=== PATIENT | female | born 1930 | race African-American/Black ===

== ENCOUNTER 2018-05-19 11:48 | Inpatient (IN) | payer MEDICARE ==
[~2018-05-19] VITALS: Ht 167.6 cm; Wt 79.8 kg
--- NOTE | ~2018-05-19 | MORECARE ---
CASE MANAGEMENT DISCHARGE SUMMARY PATIENT: JAZZ SMITH UNIT: [id number] ADM DATE: 05/19/18 AGE: 88 : 31 SEX: F ROOM/BED: D.2223 AUTHOR: BASILIA,DOC PHYSICIAN: REFERRING PHYSICIAN: DANNIE RAMIREZ MD DATE OF SERVICE: 05/22/18 Discharge Plan Patient Name: JAZZ SMITH Facility: [facility]:[place] : 1930 Planned Disposition: Home Anticipated Discharge Date: Discharge Date: Expected LOS: Initial Reviewer: [email or web address] Initial Review Date: 05/22/2018 Generated: 05/22/18 3:46 pm DCPIA - Discharge Planning Initial Assessment Updated by [email or web address]: Jo Iyer on 05/22/18 2:45 pm * Is the patient Alert and Oriented? Yes * How many steps to enter\exit or inside your home? 0/0 * PCP Dr. Coker in [place] * Pharmacy [facility] in [place] * Preadmission Environment Home with Family * ADLs Independent * Equipment Cane Oxygen Walker * List name and contact numbers for known caregivers / representatives who currently or will assist patient after discharge: Shanda Maldonado - [facility] - [phone] Cruz Biggs - [facility] - [phone] Eva White [facility] - [phone] * Verbal permission to speak to the caregivers and representatives has been obtained from the patient. Yes * Community resources currently utilized None * Please name any agencies selected above. [facility] in [place] is DME for Oxygen * Additional services required to return to the preadmission environment? No * Can the patient safely return to the preadmission environment? Yes * Has this patient been hospitalized within the prior 30 days at any hospital? No Coverage Notice Reviewer: [id number] - Jo Iyer Notice Issued Date-Time: 05/22/2018 14:30 Notice Type: IM Discharge Notice Notice Delivered To: Patient Relationship to Patient: Self Surveillance Officer Name: Delivery Method: HAND - Hand Delivered Faby Days: Prior Verbal Notification: Recipient Understood Notice: Yes Recipient Signature: Yes Med Rec Note Co-signed by Attending: Coverage Notice Comment: IMM explained, signed, copy given, original placed in MR Last DP export: 05/22/18 1:37 Patient Name: JAZZ SMITH Page [id number] at 1446 All edits/amendments must be made on the electronic document DICTATION DATE: 05/22/181444 CLINICAL SOCIAL WORK AIDE: YAMILA 05/22/181444 RPT#: [id number] DC DATE: STATUS: ADM IN [facility] [address] [place] [address] END OF REPORT
--- NOTE | ~2018-05-19 | MORECARE ---
CASE MANAGEMENT DISCHARGE SUMMARY PATIENT: JAZZ SMITH UNIT: [id number] ADM DATE: 05/19/18 AGE: 88 : 31 SEX: F ROOM/BED: D.2223 AUTHOR: BASILIADOC PHYSICIAN: REFERRING PHYSICIAN: DANNIE RAMIREZ MD DATE OF SERVICE: 05/23/18 Discharge Plan Patient Name: JAZZ SMITH Facility: [facility]:[place] : 1930 Planned Disposition: Home Anticipated Discharge Date: Discharge Date: 05/22/2018 Expected LOS: 0 Initial Reviewer: [email or web address] Initial Review Date: 05/22/2018 Generated: 05/23/18 8:58 am Comments DCP- Discharge Planning Updated by [email or web address]: Jo Iyer on 05/22/18 1:[address] Patient Name: JAZZ SMITH Admission Status: Urgent Accout number: [id number] Admission Date: 05-19-2018 : 1930 Admission Diagnosis:GASTROINTESTINAL HEMORRHAGE, UNSPECIFIED Attending: DANNIE RAMIREZ Current LOS: 3 Anticipated DC Date: Planned Disposition: Home Primary Insurance: MEDICARE A & B Discharge Planning Comments: CM met with patient and her daughters to discuss discharge planning. She is a transfer from [facility]. States prior to hospitalization, she was living with her son. States she is independent with all ADL's. States she does use a cane for ambulation. States she no longer drives, her family drives her where she needs to go. I discussed availability of rehab, SNF, home health and DME. States she has all the DME she needs and her plan is to return home with her son. States she does not need home health services. She wears oxygen at 2-3L NC at bedtime and [facility] [place]. No needs identified. CM will continue to follow and assist with discharge planning/needs. Paving Contractor: Jo Iyer DCPIA - Discharge Planning Initial Assessment Updated by [id number]: Jo Iyer on 05/22/18 2:45 pm * Is the patient Alert and Oriented? Yes * How many steps to enter\exit or inside your home? 0/0 * PCP Dr. Coker in [place] * Pharmacy [facility] in [place] * Preadmission Environment Home with Family * ADLs Independent * Equipment Cane Oxygen Walker * List name and contact numbers for known caregivers / representatives who currently or will assist patient after discharge: Shanda Maldonado - [facility] - [phone] Cruz Biggs - [facility] - [phone] Eva White [facility] - [phone] * Verbal permission to speak to the caregivers and representatives has been obtained from the patient. Yes * Community resources currently utilized None * Please name any agencies selected above. [facility] in [place] is DME for Oxygen * Additional services required to return to the preadmission environment? No * Can the patient safely return to the preadmission environment? Yes * Has this patient been hospitalized within the prior 30 days at any hospital? No Coverage Notice Reviewer: [email or web address] Emilee Iyer Notice Issued Date-Time: 05/22/2018 14:30 Notice Type: IM Discharge Notice Notice Delivered To: Patient Relationship to Patient: Self Body Piercer Name: Delivery Method: HAND - Hand Delivered Faby Days: Prior Verbal Notification: Recipient Understood Notice: Yes Recipient Signature: Yes Med Rec Note Co-signed by Attending: Coverage Notice Comment: IMM explained, signed, copy given, original placed in MR Last DP export: 05/22/18 1:54 Patient Name: JAZZ SMITH Page [id number] at 0758 All edits/amendments must be made on the electronic document DICTATION DATE: 05/23/18 075 RECRUITING MANAGER: YAMILA 05/23/18 0758 RPT#: [id number] DC DATE:05/22/18 STATUS: DIS IN [facility] [address] [place] [address] END OF REPORT
--- NOTE | ~2018-05-19 | MORECARE ---
CASE MANAGEMENT DISCHARGE SUMMARY PATIENT: JAZZ SMITH UNIT: [id number] ADM DATE: 05/19/18 AGE: 88 : 31 SEX: F ROOM/BED: D.2223 AUTHOR: BASILIA,DOC PHYSICIAN: REFERRING PHYSICIAN: DANNIE RAMIREZ MD DATE OF SERVICE: 05/22/18 Discharge Plan Patient Name: JAZZ SMITH Facility: [facility]:[place] : 1930 Planned Disposition: Home Anticipated Discharge Date: Discharge Date: Expected LOS: Initial Reviewer: [email or web address] Initial Review Date: 05/22/2018 Generated: 05/22/18 3:54 pm Comments DCP- Discharge Planning Updated by [id number]: Jo Iyer on 05/22/18 1:[address] Patient Name: JAZZ SMITH Admission Status: Urgent Accout number: [id number] Admission Date: 05-19-2018 : 1930 Admission Diagnosis:GASTROINTESTINAL HEMORRHAGE, UNSPECIFIED Attending: DANNIE RAMIREZ Current LOS: 3 Anticipated DC Date: Planned Disposition: Home Primary Insurance: MEDICARE A & B Discharge Planning Comments: CM met with patient and her daughters to discuss discharge planning. She is a transfer from [facility]. States prior to hospitalization, she was living with her son. States she is independent with all ADL's. States she does use a cane for ambulation. States she no longer drives, her family drives her where she needs to go. I discussed availability of rehab, SNF, home health and DME. States she has all the DME she needs and her plan is to return home with her son. States she does not need home health services. She wears oxygen at 2-3L NC at bedtime and [facility] [place]. No needs identified. CM will continue to follow and assist with discharge planning/needs. Belt Sander: Jo Iyer DCPIA - Discharge Planning Initial Assessment Updated by [email or web address]: Jo Iyer on 05/22/18 2:45 pm * Is the patient Alert and Oriented? Yes * How many steps to enter\exit or inside your home? 0/0 * PCP Dr. Coker in [place] * Pharmacy [facility] in [place] * Preadmission Environment Home with Family * ADLs Independent * Equipment Cane Oxygen Walker * List name and contact numbers for known caregivers / representatives who currently or will assist patient after discharge: Shanda Maldonado - [facility] [place] - [phone] Cruz Biggs - [facility] [place] - [phone] Eva White [facility] [place] - [phone] * Verbal permission to speak to the caregivers and representatives has been obtained from the patient. Yes * Community resources currently utilized None * Please name any agencies selected above. [facility] in [place] is DME for Oxygen * Additional services required to return to the preadmission environment? No * Can the patient safely return to the preadmission environment? Yes * Has this patient been hospitalized within the prior 30 days at any hospital? No Coverage Notice Reviewer: [email or web address] Emilee Iyer Notice Issued Date-Time: 05/22/2018 14:30 Notice Type: IM Discharge Notice Notice Delivered To: Patient Relationship to Patient: Self Ramp Manager Name: Delivery Method: HAND - Hand Delivered Faby Days: Prior Verbal Notification: Recipient Understood Notice: Yes Recipient Signature: Yes Med Rec Note Co-signed by Attending: Coverage Notice Comment: IMM explained, signed, copy given, original placed in MR Last DP export: 05/22/18 1:46 Patient Name: JAZZ SMITH Page [id number] at 1454 All edits/amendments must be made on the electronic document DICTATION DATE: 05/22/181453 SECURITY SHIFT SUPERVISOR: YAMILA 05/22/18 1451 RPT#: [id number] DC DATE: STATUS: ADM IN [facility] [address] [place] [address] END OF REPORT
--- NOTE | ~2018-05-19 | MORECARE ---
CASE MANAGEMENT DISCHARGE SUMMARY PATIENT: JAZZ SMITH UNIT: [id number] ADM DATE: 05/19/18 AGE: 88 : 31 SEX: F ROOM/BED: D.2223 AUTHOR: KAREN CUI PHYSICIAN: REFERRING PHYSICIAN: DANNIE RAMIREZ MD DATE OF SERVICE: 05/22/18 Discharge Plan Patient Name: JAZZ SMITH Facility: [facility]:[place] : 1930 Planned Disposition: Home Anticipated Discharge Date: Discharge Date: Expected LOS: Initial Reviewer: [email or web address] Initial Review Date: 05/22/2018 Generated: 05/22/18 3:37 pm Coverage Notice Reviewer: [id number] - Jo Iyer Notice Issued Date-Time: 05/22/2018 14:30 Notice Type: IM Discharge Notice Notice Delivered To: Patient Relationship to Patient: Self Bonding Machine Setter Name: Delivery Method: HAND - Hand Delivered Faby Days: Prior Verbal Notification: Recipient Understood Notice: Yes Recipient Signature: Yes Med Rec Note Co-signed by Attending: Coverage Notice Comment: IMM explained, signed, copy given, original placed in MR Patient Name: JAZZ SMITH Page [phone] at 1437 All edits/amendments must be made on the electronic document DICTATION DATE: 05/22/181436 EMAIL PRODUCER: YAMILA 05/22/18 1437 RPT#: [id number] DC DATE: STATUS: ADM IN [place] [address] [place] [address] END OF REPORT
[2018-05-19] MEDS ORDERED: ULTRAM50 MG PO (23:15)
[2018-05-19] MEDS ORDERED: HCTZ25 MG PO (23:16)
[2018-05-19] MEDS ORDERED: CARTIA XT240 MG PO (23:16)
[2018-05-19] MEDS ORDERED: COLCRYS0.6 MG PO (23:18)
[2018-05-19] MEDS ORDERED: ZIPSOR25 MG PO (23:21)
[2018-05-19] MEDS ORDERED: XARELTO20 MG PO (23:22)
[2018-05-19 23:24] VITALS: BP 133/56; BMI 28.4
[2018-05-20] VITALS (10 sets, daily range): BP systolic 123–152; BP diastolic 56–71; Ht 167.6 cm; Wt 79.8 kg
[2018-05-20 09:33] LABS: BASOPHILS 0.1 % (0-2); EOSINOPHILS 1.7 % (0-7); HEMATOCRIT 26.6 % (36.0-48.0); HEMOGLOBIN 8.4 g/dL (12-16); IMMATURE GRANULOCYTES 0.1 % (0-5); LYMPHOCYTES 20.4 % (15-50); MCHC 31.6 g/dL (31.0-37.0); MCV 88.7 fL (80.0-100.0); MEAN PLATELET VOLUME 8.4 fL (7.4-10.4); MONOCYTES 4.1 % (2-11); NEUTROPHILS 73.6 % (40-80); PLATELET COUNT 166 10x3/uL (130-400)
[2018-05-20 09:50] LABS: ALBUMIN 2.5 g/dL (3.4-5.0); ANION GAP 9.7 mmol/L (8-16); BILIRUBIN - TOTAL 0.39 mg/dL (0.2-1.3); CALCIUM 9.1 mg/dL (8.5-10.1); CARBON DIOXIDE 28.9 mmol/L (21.0-32.0); CREATININE - SERUM 1.5 mg/dL (0.6-1.3); POTASSIUM - SERUM 4.6 mmol/L (3.5-5.1); PROTEIN - SERUM 6.5 g/dL (6.4-8.2)
[2018-05-20 12:01] LABS: INR 1.06 (0.85-1.17); PROTIME 13.3 SECONDS (11.6-15.0)
[2018-05-20 13:09] LABS: % SATURATION 8 % (15-55); IRON 20 ug/dl (35-150); TOTAL IRON BIND CAPACITY 230 ug/dl (260-445); UNSAT IRON BIND CAPACITY 210 ug/dl (150-375)
[2018-05-20 13:23] LABS: FERRITIN 64 ng/mL (3-244); LDH 159 U/L (81-234)
[2018-05-20 16:37] LABS: HEMATOCRIT 30.2 % (36.0-48.0); HEMOGLOBIN 9.8 g/dL (12-16)
[2018-05-21 00:30] VITALS: BP 118/69
[2018-05-21 00:53] LABS: HEMATOCRIT 28.8 % (36.0-48.0); HEMOGLOBIN 9.3 g/dL (12-16)
[2018-05-21 04:30] VITALS: BP 135/61
[2018-05-21 05:23] LABS: BASOPHILS 0.2 % (0-2); HEMATOCRIT 29.2 % (36.0-48.0); HEMOGLOBIN 9.3 g/dL (12-16); LYMPHOCYTES 17.8 % (15-50); MCH 28.4 pg (26.0-34.0); MCHC 31.8 g/dL (31.0-37.0); MEAN PLATELET VOLUME 8.3 fL (7.4-10.4); MONOCYTES 6.5 % (2-11); NEUTROPHILS 73.5 % (40-80); PLATELET COUNT 148 10x3/uL (130-400); RBC 3.28 10x6/uL (4.00-5.40); WBC 6.5 10x3/uL (4.8-10.8)
[2018-05-21 05:59] LABS: ANION GAP 10.4 mmol/L (8-16); CARBON DIOXIDE 29.1 mmol/L (21.0-32.0); CREATININE - SERUM 1.3 mg/dL (0.6-1.3); POTASSIUM - SERUM 4.5 mmol/L (3.5-5.1)
[2018-05-21 08:35] VITALS: BP 133/63
[2018-05-21 08:51] LABS: HEMATOCRIT 29.8 % (36.0-48.0); HEMOGLOBIN 9.5 g/dL (12-16)
[2018-05-21 16:06] VITALS: BP 119/49
[2018-05-21 17:16] LABS: HEMATOCRIT 29.2 % (36.0-48.0); HEMOGLOBIN 9.2 g/dL (12-16)
[2018-05-21 22:09] VITALS: BP 127/57
[2018-05-22 01:00] LABS: HEMATOCRIT 28.6 % (36.0-48.0)
[2018-05-22 01:51] VITALS: BP 145/72
[2018-05-22 05:31] VITALS: BP 139/79
[2018-05-22 06:05] LABS: BASOPHILS 0.2 % (0-2); EOSINOPHILS 2.1 % (0-7); HEMATOCRIT 29.5 % (36.0-48.0); HEMOGLOBIN 9.1 g/dL (12-16); IMMATURE GRANULOCYTES 0.2 % (0-5); LYMPHOCYTES 21.1 % (15-50); MCH 28.2 pg (26.0-34.0); MCHC 30.8 g/dL (31.0-37.0); MEAN PLATELET VOLUME 8.3 fL (7.4-10.4); MONOCYTES 6.3 % (2-11); NEUTROPHILS 70.1 % (40-80); PLATELET COUNT 157 10x3/uL (130-400); RBC 3.23 10x6/uL (4.00-5.40); RDW 15.5 % (11.5-14.5); WBC 6.6 10x3/uL (4.8-10.8)
[2018-05-22 06:13] LABS: MCV 91.3 fL (80.0-100.0)
[2018-05-22 06:21] LABS: ANION GAP 8.1 mmol/L (8-16); CALCIUM 8.8 mg/dL (8.5-10.1); CARBON DIOXIDE 30.4 mmol/L (21.0-32.0); CREATININE - SERUM 1.3 mg/dL (0.6-1.3); POTASSIUM - SERUM 4.5 mmol/L (3.5-5.1)
[2018-05-22 08:50] VITALS: BP 126/42
[2018-05-22 09:00] VITALS: BP 126/42
[2018-05-22 12:10] VITALS: BP 126/61
[2018-05-22 13:30] VITALS: BP 126/61
[2018-05-22] MEDS ORDERED: PEPCID40 MG PO (14:43)
[2018-05-22] MEDS ORDERED: PROTONIX40 MG PO (14:43)
== END 2018-05-22 16:09 | disposition home or self-care (01) | DRG 378 ==
LOC: D.MS 11:48
PROVIDERS: Internal Medicine Gastroenterology; Internal Medicine Nephrology
PROC: 0W3P8ZZ Control Bleeding in Gastrointestinal Tract, Via Natural or Artificial Opening Endoscopic (ICD-10-PCS; principal; 2018-05-20 12:30)
DX: K25.4 Chronic or unspecified gastric ulcer with hemorrhage (principal); N17.9 Acute kidney failure, unspecified; I10 Essential (primary) hypertension; N18.9 Chronic kidney disease, unspecified; N28.9 Disorder of kidney and ureter, unspecified; N18.3 Chronic kidney disease, stage 3 (moderate)

== ENCOUNTER 2018-08-08 07:42 | Day surgery (SDC) | payer MEDICARE ==
[~2018-08-08] VITALS: Ht 167.6 cm; Wt 78.2 kg
--- NOTE | ~2018-08-08 | OP ---
PATIENT NAME: JAZZ SMITH MEDICAL RECORD: [id number] :[birth year] LOCATION:[facility] ADMISSION DATE: SURGEON: DANIKA MARQUES MD DATE OF OPERATION: 08/08/2018 PROCEDURE: EGD with biopsy. SALES EXPERT: Danika Marques MD SCOPE: Olympus video gastroscope. MEDICATIONS: Per TIVA anesthesia. The patient received 100 mg of propofol for this procedure, O2 of 4 liters. INDICATION FOR THE PROCEDURE: History of multiple gastric ulcers via an EGD on 05/20/2018. The patient had 2 gastric ulcers in the cardia and one gastric ulcer in the incisura. The patient additionally had a gastric ulcer in the stomach body with a visible vessel, which was actively bleeding. This was treated with photocoagulation and placement of two Hemoclips with a very good result. The patient was treated with Protonix and discharged on this medication, today is having a repeat EGD to document healing of ulcerations. FINDINGS: Informed consent was given. The patient was made comfortable with the above medications. After reaching an adequate level of sedation by slow IV push, the patient was placed on her left side. The endoscope was then advanced under direct visualization through the posterior pharyngeal area and advanced to the distal esophagus. Mild inflammation was noted in this area, but no ulcers or erosions were appreciated. The patient had a small hiatal hernia, which was seen both on direct and retroflex views. On entering the stomach, the gastric mucosa was carefully and thoroughly examined. With attention given to the cardia, 2 gastric ulcers which were nonhemorrhagic noted in the last EGD were not seen at this time. The patient had a gastric ulcer with a previous EGD in the incisura, which was slightly hemorrhagic and treated with photocoagulation with a good result. There was no evidence of this gastric ulcer during this procedure today. The main ulceration was previously noted in the stomach body and a visible vessel at that time was present. This was treated with photocoagulation and placement of two Hemoclips with a good result. One Hemoclip is remaining in the stomach body, but no evidence of ulceration is appreciated. The patient only had very mild gastritis seen throughout the entire gastric mucosa, but this was to a minimal degree. We did biopsy at this time for H. pylori at the antral area. The duodenal bulb to the second portion was normal with bile present. The scope was then withdrawn. IMPRESSION: 1. Complete healing of all of the gastric ulcers which were seen on the 05/20/2018 EGD. 2. Mild distal esophagitis. 3. Small hiatal hernia. 4. Mild global gastritis. 5. Normal duodenum. PLAN: OPERATIVE REPORT [id number] JAZZ SMITH 1. The patient at this time can stop Protonix completely. 2. Caution with anti-inflammatory drugs. 3. The patient should follow reflux precautions. No chocolate, tomato, fatty foods, peppermint, or citrus if problematic, cautioned with caffeine, cautioned with alcohol, no tobacco. We will start famotidine at a dose of 20 mg p.o. q.a.m. TRANSINT:[id number] Voice Confirmation ID: [id number] DOCUMENT ID: [id number] DANIKA MARQUES MD CC: [id number] DICTATION DATE: 08/08/18 1109 ASSISTANT TEACHER PRIMARY: 08/08/18 [address] [place] [address]
[~2018-08-08 07:42] MED LIST: CARTIA XT240 MG PO; COLCRYS0.6 MG PO; HCTZ25 MG PO; PEPCID40 MG PO; PROTONIX40 MG PO; ULTRAM50 MG PO; XARELTO20 MG PO; ZIPSOR25 MG PO
[2018-08-08 08:06] LABS: BASOPHILS 0.3 % (0-2); EOSINOPHILS 1.1 % (0-7); HEMATOCRIT 34.7 % (36.0-48.0); IMMATURE GRANULOCYTES 0.1 % (0-5); LYMPHOCYTES 22.6 % (15-50); MCH 28.9 pg (26.0-34.0); MCHC 31.7 g/dL (31.0-37.0); MCV 91.1 fL (80.0-100.0); MEAN PLATELET VOLUME 9.4 fL (7.4-10.4); NEUTROPHILS 70.9 % (40-80); PLATELET COUNT 144 10x3/uL (130-400); RBC 3.81 10x6/uL (4.00-5.40); RDW 16.5 % (11.5-14.5); WBC 7.2 10x3/uL (4.8-10.8)
[2018-08-08 08:15] LABS: ANION GAP 13.9 mmol/L (8-16); CALCIUM 9.8 mg/dL (8.5-10.1); CARBON DIOXIDE 28.4 mmol/L (21.0-32.0); CREATININE - SERUM 1.7 mg/dL (0.6-1.3); POTASSIUM - SERUM 4.3 mmol/L (3.5-5.1)
[2018-08-08 09:57] VITALS: BP 167/67; Ht 167.6 cm; Wt 78.2 kg
--- NOTE | 2018-08-08 12:26 | NUR ---
DC INSTRUCTIONS GIVEN TO PT/FAMILY. STATE UNDERSTANDING. DC'D IV CATH FULLY INTACT.
--- NOTE | 2018-08-08 12:32 | NUR ---
PT LEFT UNIT VIA WC AT 1230
== END 2018-08-08 12:30 | disposition home or self-care (01) ==
LOC: D.OPS 07:42
PROVIDERS: Anesthesiology
DX: K20.9 Esophagitis, unspecified (principal); Z87.11 Personal history of peptic ulcer disease; K44.9 Diaphragmatic hernia without obstruction or gangrene; K29.70 Gastritis, unspecified, without bleeding